=== PATIENT | female | born 1990 | race Caucasian/White ===

== ENCOUNTER 2024-11-25 21:30 | Emergency (ER) | payer BC, SELFPAY ==
[2024-11-25 21:36] VITALS: BP 150/109
[2024-11-25 21:58] LABS: Hematocrit 38.6 % (37.0-47.0); Hemoglobin 12.5 g/dL (12.0-16.0); Mean Corp Hgb Conc. 32.4 g/dL (33.0-37.0); Mean Corpuscular Volume 79.1 fL (81.0-99.0); Nucleated Red Blood Cells % 0 %; Platelet Count 245 10^3/uL (130-400); Red Cell Dist. Width 13.6 % (11.5-14.5)
[2024-11-25 22:05] LABS: HCG, Serum Qualitative Screen Negative
[2024-11-25 22:10] LABS: ALT (SGPT) 25 U/L (0-35); AST (SGOT) 19 U/L (14-36); Albumin 4.7 g/dl (3.5-5.0); Alkaline Phosphatase 60 U/L (38-126); Blood Urea Nitrogen 17 mg/dl (7-17); Calcium 9.9 mg/dl (8.4-10.2); Carbon Dioxide 26 mmol/L (22-30); Chloride 106 mmol/L (98-107); Glucose 88 mg/dl (70-99); Potassium 4.0 mmol/L (3.5-5.1); Sodium 137 mmol/L (135-145); Total Protein 7.5 g/dl (6.3-8.2); eGFR > 60.00
[2024-11-25 22:19] LABS: Troponin I < 0.012 ng/ml
--- NOTE | 2024-11-25 23:49 | ED.GENMED ---
History of Present Illness
General
Chief Complaint: Chest Pain
Time Seen by Provider: 11/25/24 23:38
History of Present Illness
History of Present Illness:
34-year-old otherwise healthy female presents to the emergency department for evaluation of a brief episode of chest discomfort radiating to the left back that began approximately 2 to 3 hours prior to my evaluation. She states she was folding
laundry at the time. She admits that she 'psyched herself out' when the symptoms began and felt somewhat short of breath. At this point the symptoms are essentially resolved. No history of similar symptoms. Denies any recent fevers or chills, no
coughing or URI symptoms. Does not take any exogenous hormones. No recent travel or surgeries. Does take a GLP-1 medication but has not changed her dosage in quite some time. Denies illicit substance use or tobacco use
Review of Systems
Review of Systems
Allergies reviewed?: Yes
Phy Exam
Physical Exam
Physical Exam:
GEN: Well appearing, NAD, WDWN
HEENT: Oral mucosa moist, no scleral icterus
Cardiac: Regular rate and rhythm, no murmurs
Lung: No respiratory distress, no tachypnea, lungs clear to auscultation bilaterally
MSK: No gross deformity or injuries
Skin: Good color, no pallor or jaundice, no rashes
Neuro: AO x3, moves all extremities freely
Psych: Calm, cooperative
Scores
Heart Score for Chest Pain Patients
STEMI patient?: No
History: Slightly or Non-Suspicious
ECG: Normal
Age: </= 45 years
Risk Factors: No Risk Factors
Troponin: </= Normal Limit
Heart Score for Chest Pain Patients: 0
Heart Score Risk: 2.5% MACE over next 6 weeks
Course
Orders/Labs/Results
Orders:
Orders
11/25/24 21:34
Electrocardiogram (*1) Urgent
Reason for Study: Chest Pain
EKG- Treatment ONCE
Test Result ONCE
11/25/24 21:44
Complete Blood Count/With Diff Urgent
Comprehensive Metabolic Panel Urgent
HCG, Serum Qualitative Screen Urgent
Comment: Notify provider if positive test present
Troponin I Urgent
11/26/24 00:00
CR Chest - 2 Views Urgent
Reason For Exam: chest pain
Abnormal Lab Results
11/25/24
21:44
MCV 79.1 L fL
(81.0-99.0)
MCH 25.6 L pg
(27.0-31.0)
MCHC 32.4 L g/dL
(33.0-37.0)
11/25/24 21:44
11/25/24 21:44
Vital Signs
Initial and Last Documented VS:
Initial Vital Signs
Temp Pulse Resp BP Pulse Ox
98.3 F 71 16 150/109 98
11/25/24 21:36 11/25/24 21:36 11/25/24 21:36 11/25/24 21:36 11/25/24 21:36
Last Documented Vital Signs
Temp Pulse Resp BP Pulse Ox
98.3 F 61 16 109/71 99
11/25/24 21:36 11/26/24 00:08 11/26/24 00:08 11/26/24 00:08 11/26/24 00:08
MDM/Problems Addressed
MDM/Problems Addressed:
Was labs and chest x-ray reassuring. Clinical presentation not concerning for ACS, she does not take any exogenous hormones and has no recent provoking factors to suggest PE particularly reassuring against PE given normal vital signs and lack of
hypoxia.
Comment
Comment:
EKG independently interpreted by me shows normal sinus rhythm with no ST changes concerning for ischemia
*Pulse Oximetry
SaO2: 98
Oxygen Mode of Delivery: Room air
Patient hypoxic: no
*Critical Care Note
Total Time (30-74mins, 75-104mins- exclusive of procedures): Not Applicable
ED Attending Note
-
Portions of this chart may have been created with voice recognition software.� Occasional wrong word or��sound alike� substitutions may have occurred due to the inherent limitations of voice recognition software.
Discharge Plan
Departure
Patient Disposition: Home (Routine Discharge)
Date of Disposition: 11/26/24
Time of Disposition: 00:18
Patient with high blood pressure during this ER visit?: No
Discharge Problem:
Atypical chest pain
Instructions: Chest Pain That Is Not Caused by the Heart (DC)
Referrals:
Antwon Medina CRNP [Family Provider, Family Practice]
Interventions
Interventions:
*Risk Screen - Suicide Last Done: 11/25/24 21:36
*General Assessment Last Done: 11/25/24 21:36
*Neglect/Abuse Screening Last Done: 11/25/24 21:36
*Nursing Disposition Last Done: 11/26/24 00:28
ED- Cardiac Assessment Last Done: 11/26/24 00:08
Discharge Date and Time
Discharge Date/Time: 11/26/24 00:30
Print Language: [place]
[2024-11-26 00:08] VITALS: BP 109/71
== END 2024-11-26 00:30 | disposition home or self-care (01) ==
LOC: EMR 21:30
PROVIDERS: Emergency Medicine; EMERGENCY PHYSICIAN Emergency Medicine; FAMILY PHYSICIAN Nurse Practitioner Family
DX: R07.89 Other chest pain (principal)
CPT/HCPCS: 99285; 71046; 80053; 84484; 84703; 85025; 93005